=== PATIENT | female | born 1985 | race African-American/Black ===

== ENCOUNTER 2017-10-10 19:44 | Observation (INO) ==
[2017-10-10 21:00] LABS: Basophils % 0.5 % (0.0-0.8); Eosinophils % 0.7 % (0.00-10.9); Hematocrit 33.4 VOL% (35.7-47.0); Hemoglobin 9.9 GM/DL (12.0-16.0); Immature Granulocytes % 0.2 %; Immature Granulocytes Absolute 0.01 #; Lymphocytes # 2.3 10*3/uL (1.4-4.0); Lymphocytes % 39.4 % (21.3-54.2); Mean Corpuscular HGB Conc 29.6 GM/DL (32-36); Mean Corpuscular Hemoglobin 19 PG (27-34); Mean Platelet Volume 10.2 FL (9.6-12.0); Monocytes # 0.6 10*3/uL (0.11-0.8); Monocytes % 10.1 % (1.7-12.7); Neutrophils # 2.9 10*3/uL (1.4-7.4); Neutrophils % 49.1 % (38.7-73.9); Platelet Count 338 T/CUMM (130-400); Red Blood Count 5.14 MC/CUMM (3.8-5.5); Red Cell Distribution Width 23.6 % (9.3-17.3); White Blood Count 5.8 T/CUMM (4-12)
[2017-10-10 21:05] LABS: INR 0.9; Partial Thromboplastin Time 27.1 SECS (0-40)
[2017-10-10 21:13] LABS: Alanine Aminotransferase 26 U/L (13-56); Alkaline Phosphatase 93 U/L (45-117); Aspartate Amino Transferase 13 U/L (0-37); Bilirubin,Total < 0.39 MG/DL (0.2-1.0); Blood Urea Nitrogen 13 MG/DL (7-18); Calcium 8.9 MG/DL (8.5-10.1); Glucose 93 MG/DL (74-106); Osmolality,Calculated 278.4 MOS/KG (273-304); Sodium 140 MMOL/L (136-145); Total Protein 7.6 G/DL (6.4-8.3); Troponin I Only < 0.015 NG/ML (0.00-0.045)
[2017-10-10 21:15] LABS: Amorphous Crystals,Urine Occasional /HPF (Few); Apearance,Urine CLOUDY (Clear); Bilirubin,Urine Negative (Negative); Blood, Urine Negative (Negative); Glucose,Urine (UA) Negative (Negative); Ketones,Urine Negative (Negative); Mucus,Urine Moderate /LPF (Occasional); Nitrite,Urine Negative (Negative); Protein,Urine Negative; RBC,Urine 2 /HPF (0-4); Squamous Epithelial Cell,Urine Moderate /HPF (0-10); Urine Color Yellow (Yellow); Urine Specific Gravity 1.028 (1.001-1.035); Urine Urobilinogen < 2.0 EU/DL (0.2-1.0); WBC,Urine 2 /HPF (0-6)
[2017-10-10 21:29] LABS: Barbiturates Screen,Urine Negative (Negative); Benzodiazepines Screen,Urine Negative (Negative); Cannabinoid Screen,Urine Negative (Negative); Opiate Screen,Urine Negative (Negative); Phencyclidine Screen,Urine Negative (Negative)
[2017-10-10 21:42] LABS: Anisocytosis 1+; Elliptocytes Few; Hypochromasia 1+; Platelet Estimate Adequate; Schistocytes Few
[2017-10-10] MEDS ORDERED: MORPHINE 2 MG/1 ML SYRINGE IV PRN (23:24)
[2017-10-10] MEDS ORDERED: ONDANSETRON 4 MG/2 ML VIAL IV PRN (23:24)
[2017-10-10] MEDS ORDERED: ONDANSETRON 4 MG/2 ML VIAL ONE (23:25)
[2017-10-10] MEDS ORDERED: HYDROmorphone 2 MG/1 ML VIAL ONE (23:25)
[2017-10-10] MEDS ORDERED: ONDANSETRON 4 MG/2 ML VIAL IV ONE (23:35)
[2017-10-11] MEDS: ENOXAPARIN 40 MG/0.4 ML SYRINGE SUBCUT SCH ×2 (00:20→20:21)
[2017-10-11] MEDS ORDERED: ENOXAPARIN 40 MG/0.4 ML SYRINGE ONE (00:21)
[2017-10-11] MEDS ORDERED: HYDROmorphone 2 MG/1 ML VIAL IV ONE (00:50)
[2017-10-11] MEDS ORDERED: ONDANSETRON 4 MG/2 ML VIAL IM ONE (00:51)
[2017-10-11] MEDS ORDERED: PROMETHAZINE 25 MG/1 ML VIAL IM PRN (02:00)
[2017-10-11 06:38] LABS: Basophils % 0.3 % (0.0-0.8); Eosinophils % 0.3 % (0.00-10.9); Hematocrit 30.7 VOL% (35.7-47.0); Immature Granulocytes % 0.3 %; Immature Granulocytes Absolute 0.02 #; Lymphocytes % 33.8 % (21.3-54.2); Mean Corpuscular HGB Conc 29.3 GM/DL (32-36); Mean Corpuscular Hemoglobin 19 PG (27-34); Mean Corpuscular Volume 65.3 FL (87-102); Mean Platelet Volume 10.1 FL (9.6-12.0); Monocytes # 0.5 10*3/uL (0.11-0.8); Monocytes % 8.3 % (1.7-12.7); Neutrophils # 3.3 10*3/uL (1.4-7.4); Platelet Count 293 T/CUMM (130-400); Red Cell Distribution Width 23.2 % (9.3-17.3); White Blood Count 5.9 T/CUMM (4-12)
[2017-10-11 06:39] LABS: Basophils % 0.2 % (0.0-0.8); Eosinophils % 0.2 % (0.00-10.9); Hematocrit 30.7 VOL% (35.7-47.0); Hemoglobin 9.1 GM/DL (12.0-16.0); Immature Granulocytes Absolute 0.06 #; Lymphocytes # 2.1 10*3/uL (1.4-4.0); Lymphocytes % 35.1 % (21.3-54.2); Mean Corpuscular HGB Conc 29.6 GM/DL (32-36); Mean Corpuscular Hemoglobin 19 PG (27-34); Mean Corpuscular Volume 65.3 FL (87-102); Monocytes # 0.6 10*3/uL (0.11-0.8); Monocytes % 9.5 % (1.7-12.7); Neutrophils # 3.2 10*3/uL (1.4-7.4); Platelet Count 289 T/CUMM (130-400); Red Cell Distribution Width 23.1 % (9.3-17.3); White Blood Count 5.9 T/CUMM (4-12)
[2017-10-11 07:03] LABS: Hypochromasia Slight; Platelet Estimate Adequate
[2017-10-11 07:21] LABS: Calcium 9.1 MG/DL (8.5-10.1); Osmolality,Calculated 280.3 MOS/KG (273-304); Potassium 3.9 MMOL/L (3.5-5.1); Thyroid Stimulating Hormone 3.4 uIU/ml (0.358-3.74)
[2017-10-11 07:27] LABS: Folate 12.1 NG/ML (5.4-24.0); Vitamin B12 381 PG/ML (211-911)
[2017-10-11 07:56] LABS: Rheumatoid Factor < 15 IU/ML (<15)
[2017-10-11 08:20] LABS: Sedimentation Rate-Westergren 14 MM/HR (0-20)
[2017-10-11] MEDS: PANTOPRAZOLE 40 MG TABLET PO SCH (09:00)
[2017-10-11 13:12] LABS: Hemoglobin A1 (Alkaline) 97.3 % (96.5-98.5); Hemoglobin A2 (Alkaline) 2.7 % (1.5-3.5)
[2017-10-12] MEDS: PANTOPRAZOLE 40 MG TABLET PO SCH (08:33)
[2017-10-12] MEDS ORDERED: LORazepam 2 MG/1 ML VIAL ONE (09:34)
[2017-10-12] MEDS ORDERED: LORazepam 2 MG/1 ML VIAL IV ONE (09:38)
[2017-10-12] MEDS: ACETAMINOPHEN 325 MG TABLET PO PRN ×2 (11:25→16:49)
[2017-10-12] MEDS: ENOXAPARIN 40 MG/0.4 ML SYRINGE SUBCUT SCH (20:29)
[2017-10-13] MEDS: PANTOPRAZOLE 40 MG TABLET PO SCH (09:35)
[2017-10-13 12:43] VITALS: BP 101/69
== END 2017-10-13 14:45 | disposition home or self-care (01) ==
LOC: N.EDINP 19:44 → N.ED 19:44 → N.5E 23:42
PROVIDERS: ADMIT Internal Medicine; ATTEND Internal Medicine

== ENCOUNTER 2018-04-12 07:20 | Observation (INO) ==
[2018-04-12 09:17] LABS: Basophils % 0.2 % (0.0-0.8); Eosinophils % 0.2 % (0.00-10.9); Hematocrit 25.4 VOL% (35.7-47.0); Hemoglobin 7.2 GM/DL (12.0-16.0); Immature Granulocytes % 0.2 %; Immature Granulocytes Absolute 0.01 #; Lymphocytes # 1.4 10*3/uL (1.4-4.0); Lymphocytes % 34.2 % (21.3-54.2); Mean Corpuscular HGB Conc 28.3 GM/DL (32-36); Mean Corpuscular Hemoglobin 18 PG (27-34); Mean Corpuscular Volume 62.9 FL (87-102); Mean Platelet Volume 10.2 FL (9.6-12.0); Monocytes # 0.3 10*3/uL (0.11-0.8); Monocytes % 8.2 % (1.7-12.7); Neutrophils # 2.3 10*3/uL (1.4-7.4); Platelet Count 327 T/CUMM (130-400); Red Blood Count 4.04 MC/CUMM (3.8-5.5); Red Cell Distribution Width 21.2 % (9.3-17.3)
[2018-04-12] MEDS ORDERED: SODIUM CHLORIDE 0.9% 1,000 ML IV STA (09:19)
[2018-04-12 09:21] LABS: PT Patient Result 10.3 SECS; Partial Thromboplastin Time 25.3 SECS (0-40)
[2018-04-12] MEDS ORDERED: ONDANSETRON 4 MG/2 ML VIAL IV STA (09:41)
[2018-04-12] MEDS ORDERED: KETOROLAC 30 MG/1 ML VIAL IV STA (09:41)
[2018-04-12] MEDS ORDERED: KETOROLAC 30 MG/1 ML VIAL ONE (09:42)
[2018-04-12] MEDS ORDERED: ONDANSETRON 4 MG/2 ML VIAL ONE (09:42)
[2018-04-12 09:50] LABS: Anisocytosis 1+
[2018-04-12 09:52] LABS: Hypochromasia 1+
[2018-04-12 09:53] LABS: Microcytosis 1+; Polychromasia Slight
[2018-04-12 09:55] LABS: Ovalocytes Slight
[2018-04-12 09:58] LABS: Target Cells Slight
[2018-04-12 10:15] LABS: Schistocytes Slight
[2018-04-12] MEDS ORDERED: HYDROmorphone 2 MG/1 ML VIAL IV ONE (10:18)
[2018-04-12] MEDS ORDERED: IBUPROFEN 800 MG TABLET PO PRN (10:50)
[2018-04-12] MEDS ORDERED: BISACODYL 10 MG SUPP RECTAL PRN (10:50)
[2018-04-12] MEDS ORDERED: MAGNESIUM HYDROXIDE SUSP 30 ML UDCUP PO PRN (10:50)
[2018-04-12] MEDS: LACTATED RINGERS 1,000 ML IV SCH ×2 (11:27→20:11)
[2018-04-12] MEDS: ONDANSETRON 4 MG/2 ML VIAL IV PRN (18:39)
[2018-04-12 19:20] LABS: Hematocrit 23.3 VOL% (35.7-47.0); Hemoglobin 6.7 GM/DL (12.0-16.0)
[2018-04-12] MEDS: ACETAMINOPHEN 325 MG TABLET PO PRN (20:07)
[2018-04-12] MEDS ORDERED: SODIUM CHLORIDE 0.9% 1,000 ML IV PRN ×3 (21:14→21:19)
[2018-04-12] MEDS: DOCUSATE SODIUM 100 MG CAPSULE PO SCH (21:39)
[2018-04-13] MEDS: ACETAMINOPHEN 325 MG TABLET PO PRN (04:00)
[2018-04-13] MEDS: LACTATED RINGERS 1,000 ML IV SCH (06:15)
[2018-04-13 07:26] VITALS: BP 115/61
[2018-04-13] MEDS: ONDANSETRON 4 MG/2 ML VIAL IV PRN (07:44)
[2018-04-13 08:06] LABS: Hematocrit 29.7 VOL% (35.7-47.0)
[2018-04-13 08:07] LABS: Hemoglobin 9.2 GM/DL (12.0-16.0)
[2018-04-13] MEDS: DOCUSATE SODIUM 100 MG CAPSULE PO SCH (11:15)
== END 2018-04-13 10:45 | disposition home or self-care (01) ==
LOC: N.EDINP 07:20 → N.ED 07:20 → N.OB 10:04
PROVIDERS: ADMIT Obstetrics & Gynecology; ATTEND Obstetrics & Gynecology